=== PATIENT | male | born 1980 | race Asian ===

== ENCOUNTER 2023-06-21 09:08 | Emergency (ER) | payer OTHER ==
[~2023-06-21] VITALS: Ht 167.6 cm; Wt 99.8 kg
[2023-06-21 09:18] VITALS: BP_SYST 147; PULSE 95; RESP 18; TEMP 97.5; O2SAT 100
[2023-06-21] MEDS ORDERED: INSULIN REGULAR, HUMAN 100 UNITS/ML, 3 ML VIAL SUBCUT ONE (09:45)
[2023-06-21] MEDS ORDERED: FAMOTIDINE PF 20 MG/2 ML VIAL ONE (10:26)
== END 2023-06-21 10:35 ==
LOC: SED 09:08
DX: E11.65 Type 2 diabetes mellitus with hyperglycemia (principal); I10 Essential (primary) hypertension; Z79.899 Other long term (current) drug therapy
CPT/HCPCS: 99283; 82962; 96372; J3490